=== PATIENT | male | born 1995 | race Hispanic/Latino ===

== ENCOUNTER 2019-11-02 21:29 | Emergency (ER) | payer SELFPAY ==
[2019-11-02 22:13] LABS: #Basophils 0.1 thou/uL (0.0-0.2); #Eosinphils 0.7 thou/uL (0.0-0.7); #Monocytes 0.5 thou/uL (0.11-0.59); #Neutrophils 4.5 thou/uL (1.40-6.50); %Eosinophils 7.7 % (0.0-10.0); %Lymphocytes 33.9 % (21.0-51.0); %Monocytes 5.9 % (0.0-10.0); %Neutrophils 51.5 % (42.0-75.0); Hemoglobin 15.8 g/dL (14.0-18.0); Mean Corpuscular HGB CONC 34.6 g/dL (32.0-36.0); Mean Corpuscular Hemoglobin 32.4 pg (27.0-31.0); Mean Corpuscular Volume 93.5 fL (78.0-98.0); Mean Platelet Volume 6.4 fL (7.4-10.4); Platelet Count 389 thou/uL (130-400); RBC Distribution Width 12.3 % (11.5-14.5); Red Blood Cell (RBC) Count 4.86 mill/uL (4.70-6.10); White Blood Cell (WBC) Count 8.7 thou/uL (4.8-10.8)
[2019-11-02 22:32] LABS: Bacteria/HPF None Seen HPF (None Seen); Bilirubin Negative (Negative); Blood, Urine Negative (Negative); Clarity Turbid (Clear); Glucose, Urine (Dipstick) Normal (Negative); Leukocyte Negative Leu/uL (Negative); Nitrite Negative (Negative); Protein, Urine (Dipstick) 100 mg/dL (Neg-Trace); RBC/HPF None Seen HPF (0-3); Squamous Epithelial None Seen HPF (0-3)
[2019-11-02 22:33] LABS: Acetaminophen Less than 6.0 mcg/mL (10.0-30.0); Alcohol Less than 10 mg/dL (Less than 10); CK (CPK) 61 U/L (30-200); Salicylate Less than 8.0 mg/dL (15.0-30.0)
[2019-11-02 22:34] LABS: ALT (SGPT) 15 U/L (8-55); AST (SGOT) 12 U/L (5-34); Albumin 4.8 g/dL (3.5-5.0); Alkaline Phosphatase 74 U/L (40-110); Anion Gap 13 mmol/L (10-20); BUN (Urea Nitrogen) 15 mg/dL (8.9-20.6); Bilirubin, Total 0.3 mg/dL (0.2-1.2); Calc. Creatinine Clearance 0 mL/min (70-130); Calcium 10.1 mg/dL (7.8-10.44); Carbon Dioxide 26 mmol/L (22-29); Chloride 104 mmol/L (98-107); Estimated GFR-MDRD 85; Globulin 3.2 g/dL (2.4-3.5); Glucose 119 mg/dL (70-105); Potassium 3.7 mmol/L (3.5-5.1); Sodium 139 mmol/L (136-145)
[2019-11-02 22:43] LABS: Amphetamine Detected (NotDetected); Medtox Reader # READER 1; Methamphetamine Detected (NotDetected); Phencyclidine (PCP) Not Detected (NotDetected); THC/Cannabinoid Screen Detected (NotDetected); Tricyclic Screen Detected (NotDetected)
[2019-11-02 22:44] LABS: Barbiturates Screen Not Detected (NotDetected); Benzodiazepine Screen Not Detected (NotDetected); Cocaine Metabolite Screen Not Detected (NotDetected); Medtox Control Line Valid? VALID (VALID); Methadone Not Detected (NotDetected); Opiate Screen Not Detected (NotDetected); Oxycodone Screen Not Detected (NotDetected)
[2019-11-03] MEDS ORDERED: Cephalexin 250 MG CAP PO SCH ×2 (10:00→13:00)
[2019-11-03] MEDS ORDERED: Sulfameth/Trimethoprim DS 800-160mg TAB PO SCH ×2 (10:00→21:00)
[2019-11-03] MEDS ORDERED: Cephalexin 250 MG CAP ONE ×3 (11:15→19:52)
[2019-11-03] MEDS ORDERED: Sulfameth/Trimethoprim DS 800-160mg TAB ONE ×2 (11:15→19:52)
[2019-11-03] MEDS ORDERED: hydrOXYzine 25 MG TAB ONE (17:55)
[2019-11-03] MEDS ORDERED: Famotidine 20 MG TAB ONE (23:20)
[2019-11-04] MEDS ORDERED: Cephalexin 250 MG CAP ONE ×2 (10:30)
[2019-11-04] MEDS ORDERED: Sulfameth/Trimethoprim DS 800-160mg TAB ONE (10:30)
[2019-11-04] MEDS ORDERED: hydrOXYzine Pamoate 25 mg Capsule ONE (11:02)
[2019-11-05] MEDS ORDERED: hydrOXYzine Pamoate 25 mg Capsule PO PRN (21:11)
[2019-11-05] MEDS ORDERED: Ibuprofen 600 MG TAB PO PRN (21:12)
[2019-11-05] MEDS ORDERED: traZODone HCl 50 MG TAB PO PRN (21:14)
[2019-11-05] MEDS ORDERED: Acetaminophen 325 MG TAB PO PRN (21:14)
--- NOTE | 2019-11-08 15:21 | EKG ---
Test Reason : Blood Pressure : / mmHG Vent. Rate : 071 BPM Atrial Rate : 071 BPM P-R Int : 134 ms QRS Dur : 096 ms QT Int : 386 ms P-R-T Axes : 061 074 045 degrees QTc Int : 419 ms Normal sinus rhythm Normal ECG Confirmed by NETTIE MONTALVO ([id number]), editorial specialist NERI WALKER ([id number]) on 11/08/2019 3:21:20 PM Referred By: Confirmed By:NETTIE MONTALVO
== END 2019-11-06 09:42 ==
LOC: ERS 21:29
DX: T43.592A Poisoning by other antipsychotics and neuroleptics, intentional self-harm, initial encounter (principal); F41.9 Anxiety disorder, unspecified; F31.9 Bipolar disorder, unspecified; F20.9 Schizophrenia, unspecified; F17.210 Nicotine dependence, cigarettes, uncomplicated; Z79.899 Other long term (current) drug therapy
CPT/HCPCS: 36415; 80053; 80306; 80307; 81003; 81015; 82550; 84443; 85025; 93005; Q0177